=== PATIENT | female | born 2000 | race Caucasian/White ===

== ENCOUNTER 2023-06-24 12:34 | Emergency (ER) | payer SELFPAY ==
[2023-06-24 13:06] VITALS: BMI 45.1
[2023-06-24] MEDS ORDERED: ACETAMINOPHEN 500 MG TABLET (FP) ONE (14:49)
[2023-06-24] MEDS ORDERED: IBUPROFEN 400 MG TABLET (FP) PO ONE (14:49)
[2023-06-24] MEDS ORDERED: ALBUTEROL SO4 2.5/IPRATROPIUM 0.5 INH SOL 3 ML VIAL.NEB. NEB ONE (14:49)
[2023-06-24] MEDS: IBUPROFEN 400 MG TABLET (FP) PO ONE (14:54)
[2023-06-24] MEDS: ACETAMINOPHEN 500 MG TABLET (FP) PO ONE (14:55)
[2023-06-24] MEDS: ALBUTEROL SO4 2.5/IPRATROPIUM 0.5 INH SOL 3 ML VIAL.NEB. NEB ONE (14:55)
[2023-06-24 15:15] LABS: THROAT:GRP A STREP NOT DETECTED (NOTDETECTED)
[2023-06-24 15:42] VITALS: BP 101/67; PULSE 98; RESP 18; TEMP 101.7
== END 2023-06-24 15:46 | disposition home or self-care (01) ==
LOC: JERFT 12:34
PROC: 3E0F7GC Introduction of Other Therapeutic Substance into Respiratory Tract, Via Natural or Artificial Opening (ICD-10-PCS; principal; 2023-06-24)
DX: R09.81 Nasal congestion (principal); R51.9 Headache, unspecified; J02.9 Acute pharyngitis, unspecified; R05.9 Cough, unspecified; R50.9 Fever, unspecified; R52 Pain, unspecified; J06.9 Acute upper respiratory infection, unspecified; Z20.822 Contact with and (suspected) exposure to COVID-19
CPT/HCPCS: 0241U-QW; 71046-TC-FY; 87651; 93005; 93010; 99285-25